=== PATIENT | female | born 1985 | race Two or more races ===

== ENCOUNTER 2021-11-02 21:04 | Emergency (ER) | payer MEDICAID ==
[~2021-11-02] VITALS: Ht 160 cm; Wt 76.4 kg
[2021-11-02 22:34] LABS: CLARITY,URINE CLEAR (Clear); COLOR,URINE YELLOW (Yellow); GLUCOSE, URINE NEGATIVE (Neg); KETONES,URINE NEGATIVE (Neg); LEUKOCYTE ESTERASE ,URINE NEGATIVE (Neg); NITRITES, URINE NEGATIVE (Neg); OCCULT BLOOD,URINE NEGATIVE (Neg); PROTEIN,URINE NEGATIVE (Neg); UROBILINOGEN,URINE 0.2 E.U/dL (0.2-1.0)
[2021-11-02 22:36] LABS: URINE HCG NEGATIVE (NEG)
[2021-11-02 22:42] LABS: UA COLLECTION TYPE NON-SPECIFIED
[2021-11-02] MEDS ORDERED: HYDROcodone/acetaminophen 10/325mg tab PO ONE (22:45)
--- NOTE | 2021-11-03 08:22 | NUR ---
at the bedside. Pt c/o R lower back pain that radiates down to R laderal thigh.
--- NOTE | 2021-11-03 09:40 | NUR ---
Transported to MRI via wheelchair by tech.
[2021-11-03] MEDS ORDERED: CYCL-1 PO (11:39)
[2021-11-03] MEDS ORDERED: ACET-3068 PO (11:39)
[2021-11-03 12:50] VITALS: BP 113/74
== END 2021-11-03 12:59 | disposition home or self-care (01) ==
LOC: ER 21:05
DX: M54.59 Other low back pain (principal); Z20.822 Contact with and (suspected) exposure to COVID-19; R20.0 Anesthesia of skin; Z79.899 Other long term (current) drug therapy
CPT/HCPCS: 72131; 72148; 81003; 81025; 87811; 99285

== ENCOUNTER 2022-11-11 16:51 | Inpatient (IN) | payer MEDICAID ==
[~2022-11-11] VITALS: Ht 160 cm; Wt 76.0 kg
[~2022-11-11 16:51] MED LIST: CYCL-1 PO
[2022-11-11 17:42] LABS: BILIRUBIN,URINE NEGATIVE (Neg); CLARITY,URINE SLIGHTLY CLOUDY (Clear); COLOR,URINE YELLOW (Yellow); GLUCOSE, URINE NEGATIVE (Neg); KETONES,URINE NEGATIVE (Neg); LEUKOCYTE ESTERASE ,URINE NEGATIVE (Neg); NITRITES, URINE NEGATIVE (Neg); OCCULT BLOOD,URINE NEGATIVE (Neg); PH,URINE 7.5 (4.8-8.0); PROTEIN,URINE NEGATIVE (Neg); UROBILINOGEN,URINE 0.2 E.U/dL (0.2-1.0)
[2022-11-11 17:43] LABS: URINE HCG NEGATIVE (NEG)
[2022-11-11 17:54] LABS: UA COLLECTION TYPE CLN CATCH MIDSTREAM
[2022-11-11 17:55] LABS: BACTERIA,URINE FEW /HPF (Neg); MUCUS STRANDS FEW /LPF (Neg); RBC,URINE 0-2 /HPF (0-2); SQUAMOUS EPITHELIAL CELL,UR FEW /LPF (FEW); WBC,URINE 0-4 /HPF (0-4)
[2022-11-11 18:17] LABS: BASOPHILS % (AUTO) 0.2 % (0-1); EOSINOPHILS % (AUTO) 0.4 % (0-6); HEMATOCRIT 36.5 % (35.0-45.0); HEMOGLOBIN 12.2 g/dl (12.0-16.0); LYMPHOCYTES # (AUTO) 2.7 X10'3 (1.1-4.8); LYMPHOCYTES % (AUTO) 23.1 % (21-51); MEAN CORPUSCULAR HEMOGLOBIN 28.6 PG (27.0-31.0); MEAN CORPUSCULAR HGB CONC 33.4 g/dL (33.0-36.5); MEAN CORPUSCULAR VOLUME 85.6 FL (78-98); MEAN PLATELET VOLUME 7.9 FL (7.4-10.4); MONOCYTES # (AUTO) 0.8 X10'3 (0-0.9); MONOCYTES % (AUTO) 6.7 % (2-12); NEUTROPHILS % (AUTO) 69.6 % (42-75); PLATELET COUNT 285 X10'3 (140-440); RED BLOOD COUNT 4.26 X10'6 (4.20-5.60); RED CELL DISTRIBUTION WIDTH 13.8 % (11.5-14.5); WHITE BLOOD COUNT 11.5 X10'3 (4.5-11.0)
[2022-11-11 18:22] LABS: ALANINE AMINOTRANSFERASE 41 U/L (12-78); ALBUMIN 3.8 G/DL (3.4-5.0); ALKALINE PHOSPHATASE 67 IU/L (46-116); ANION GAP 5 (8-16); ASPARTATE AMINO TRANSFERASE 20 U/L (10-37); BILIRUBIN,TOTAL 0.4 MG/DL (0.1-1.0); BLOOD UREA NITROGEN 8 MG/DL (7-18); BUN/CREATININE RATIO 13.3 (10.0-20.0); CALCIUM 9.1 MG/DL (8.5-10.1); CHLORIDE 104 MMOL/L (99-107); GLUCOSE 88 MG/DL (70-104); POTASSIUM 3.4 MMOL/L (3.5-5.1); SODIUM 137 MMOL/L (135-145); TOTAL CARBON DIOXIDE 28.2 MMOL/L (24-32); TOTAL PROTEIN 7.6 G/DL (6.4-8.2); eCRCL 107 ML/MIN; eGFR > 90 ML/MIN
[2022-11-11] MEDS ORDERED: ondansetron 4mg rapidly disintigrating tab PO ONE (22:50)
[2022-11-11] MEDS ORDERED: acetaminophen 325mg tablet PO ONE (22:50)
[2022-11-11] MEDS ORDERED: morphine 4 MG/ML inj SYRINge IV ONE (22:55)
[2022-11-11] MEDS ORDERED: normal saline 1000ml 1,000 ML IV ONE (22:55)
[2022-11-11] MEDS ORDERED: piperacillin/tazo 3.375gm/50ml 50 ML IV ONE (22:55)
[2022-11-12] VITALS (25 sets, daily range): BP systolic 97–158; BP diastolic 54–75; PULSE 67–98; RESP 12–23; TEMP 97.1–97.6; O2SAT 94–100
[2022-11-12] MEDS ORDERED: morphine 2 MG/ML inj. syringe IV PRN ×3 (00:15→15:00)
[2022-11-12] MEDS ORDERED: potassium Cl 40MEQ/1/2NS 520ml 520 ML IV PRN (00:15)
[2022-11-12] MEDS ORDERED: magnesium Cl slow-release 64mg tablet PO PRN (00:15)
[2022-11-12] MEDS ORDERED: magnesium 4gm in 100ml NS 100 ML IV PRN (00:15)
[2022-11-12] MEDS ORDERED: acetaminophen 325mg tablet PO PRN (00:15)
[2022-11-12] MEDS ORDERED: magnesium 2GM in 50ml NS 50 ML IV PRN (00:15)
[2022-11-12] MEDS ORDERED: ondansetron/PF 4mg/2ml inj IV PRN ×2 (00:15→15:00)
[2022-11-12] MEDS ORDERED: potassium Cl 20 mEq SR tablet PO PRN (00:15)
[2022-11-12] MEDS: normal saline 1000ml 1,000 ML IV SCH ×3 (00:21→21:08)
[2022-11-12] MEDS ORDERED: NO HOME MEDS (00:36)
[2022-11-12 03:04] LABS: MAGNESIUM 1.9 MG/DL (1.5-2.4); POTASSIUM 3.3 MMOL/L (3.5-5.1)
--- NOTE | 2022-11-12 07:20 | NUR ---
[facility] PAGED PT REQUESTED PRN PAIN MED
[2022-11-12] MEDS: K and/or MAG REPLACEMENT MC SCH ×2 (07:52→20:00)
[2022-11-12] MEDS: piperacillin/tazo 3.375gm/50ml 50 ML IV SCH ×3 (08:00→23:56)
--- NOTE | 2022-11-12 08:22 | NUR ---
2ND PAGE FOR [facility]
--- NOTE | 2022-11-12 09:25 | NUR ---
3RD ATTEMPT LEFT VM [facility]'S CELL
[2022-11-12] MEDS ORDERED: HYDROmorphone inj. 0.5 MG/0.5 ML DISP.SYRIN IV STA (09:56)
--- NOTE | 2022-11-12 10:28 | NUR ---
REPORT FROM DAY NURSE, PT. UP TO BR AFTER DANGLE, NO DIZZINESS, PAIN 7/10 ABD AND WANTED TO WALK TO BR PRIOR TO PAIN MEDICATIONS. COMPLIANT WITH NPO.
--- NOTE | 2022-11-12 12:16 | NUR ---
PT TURNED OFF HER OWN IV, STATED POTASSIUM BURNING, NOTIFING , TURNED TO 30 ML, IS K RYTER 500 ML ORDERED FASTER RATE.
[2022-11-12] MEDS ORDERED: HYDROmorphone inj. 0.5 MG/0.5 ML DISP.SYRIN IV PRN (13:40)
--- NOTE | 2022-11-12 14:22 | NUR ---
TO OR, VSS, NO PAIN, NO NAUSEA, URINATED PRIOR TO OR WHEN TECH ARRIVED. TOOK HER BELONGINGS AND UPPER DENTURES. IV WNL, SLOWLY TOLERATING IV POTASSIUM PT. HAD STOPPED ORDERED RATE HER SELF OF 130 ML HOUR, STATED IT HURT, NOW AT 60 ML HOUR.
[2022-11-12] MEDS ORDERED: BUPIVAcaine/PF 2.5 mg/ml (0.25%) 30ml vial ONE (14:43)
[2022-11-12] MEDS ORDERED: sevoflurane 250ml liquid IH ONE (14:58)
[2022-11-12] MEDS ORDERED: ringers solution, lacted 1,000 ML IV SCH (15:00)
[2022-11-12] MEDS ORDERED: morphine 4 MG/ML inj SYRINge IV PRN (15:00)
[2022-11-12] MEDS ORDERED: proCHLORperazine 10 MG/2 ml inj IV PRN (15:00)
[2022-11-12] MEDS ORDERED: meperidine/PF 25mg/ml syringe IV PRN ×3 (15:00)
[2022-11-12] MEDS ORDERED: midazolam 1 mg/ML 2ml injection ONE (15:03)
[2022-11-12] MEDS ORDERED: fentaNYL/PF 50MCG/1 ML 2ML syringe ONE (15:03)
[2022-11-12] MEDS ORDERED: rocuronium 10mg/ml inj IV ONE (15:03)
[2022-11-12] MEDS ORDERED: propofol inj 20 ML IV ONE ×2 (15:03→16:06)
[2022-11-12] MEDS ORDERED: BUPIVAcaine/PF 2.5 mg/ml (0.25%) 30ml vial IJ ONE (15:45)
[2022-11-12] MEDS ORDERED: ondansetron/PF 4mg/2ml inj ONE (16:05)
[2022-11-12] MEDS ORDERED: dexamethasone sod phosphate 4mg/ml inj. ONE (16:09)
[2022-11-12] MEDS ORDERED: glycopyrrolate 0.2mg/ml inj ONE (16:09)
[2022-11-12] MEDS ORDERED: neostigmine methylsulfate 1 MG/ML 10ml vial ONE (16:09)
[2022-11-12] MEDS ORDERED: HYDROmorphone inj. 0.5 MG/0.5 ML DISP.SYRIN SQ PRN (16:15)
[2022-11-12] MEDS ORDERED: naloxone 0.4 mg/ml inj IV PRN (16:15)
--- NOTE | 2022-11-12 16:23 | NUR ---
Received from OR via HOSPITAL BED, accompanied by Anesthesiologist and report given by [facility] Anesthesiologist. PATIENT WAKING UP, NO S/S OF PAIN, V/S WNL, SCD ON , PIV 20G LEFT AC, BANDAID LAPS SITES CLOSED CDI TO ABDOMEN. Addendum: 11/12/22 at 1656 by Randolph Meneses RN Amended: Links added.
--- NOTE | 2022-11-12 18:53 | NUR ---
PATIENT HAS MET ALL CRITERIA FOR TRANSFER TO ORTHO FLOOR. VSS. DRESSINGS INTACT. BED LOW, CALL LIGHT PRESENT AND 2 RAILS UP. RN PRESENT TO ACCEPT CARE OF PATIENT AND REPORT HAS BEEN CALLED. ALL QUESTIONS ANSWERED TO ACCEPTING RN. Addendum: 11/12/22 at 1914 by Randolph Meneses RN Amended: Links added.
--- NOTE | 2022-11-12 19:10 | NUR ---
Recieved pt report from recovery room Nurse Genaro pt transferred on bed and made her comfortable.
[2022-11-12] MEDS: HYDROcodone/acetaminophen 5mg/325mg tablet PO PRN (21:39)
[2022-11-12] MEDS: potassium Cl 20 mEq SR tablet PO PRN (23:27)
[2022-11-13 02:22] VITALS: BP 104/57; PULSE 67; RESP 18; O2SAT 96
[2022-11-13] MEDS: HYDROcodone/acetaminophen 5mg/325mg tablet PO PRN ×2 (03:55→09:44)
[2022-11-13] MEDS: potassium Cl 20 mEq SR tablet PO PRN (03:56)
[2022-11-13] MEDS: normal saline 1000ml 1,000 ML IV SCH (06:15)
--- NOTE | 2022-11-13 06:30 | NUR ---
Problems reprioritized. Patient report given, questions answered & plan of care reviewed with TRISTAN HERBERT.
[2022-11-13 06:40] LABS: BASOPHILS % (AUTO) 0.2 % (0-1); EOSINOPHILS % (AUTO) 0.2 % (0-6); HEMATOCRIT 35.4 % (35.0-45.0); HEMOGLOBIN 11.8 g/dl (12.0-16.0); LYMPHOCYTES # (AUTO) 1.8 X10'3 (1.1-4.8); LYMPHOCYTES % (AUTO) 16.2 % (21-51); MEAN CORPUSCULAR HEMOGLOBIN 28.5 PG (27.0-31.0); MEAN CORPUSCULAR HGB CONC 33.3 g/dL (33.0-36.5); MEAN CORPUSCULAR VOLUME 85.7 FL (78-98); MEAN PLATELET VOLUME 7.9 FL (7.4-10.4); MONOCYTES # (AUTO) 0.9 X10'3 (0-0.9); MONOCYTES % (AUTO) 8.1 % (2-12); NEUTROPHILS # (AUTO) 8.3 X10'3 (1.8-7.7); NEUTROPHILS % (AUTO) 75.3 % (42-75); PLATELET COUNT 278 X10'3 (140-440); RED BLOOD COUNT 4.13 X10'6 (4.20-5.60); RED CELL DISTRIBUTION WIDTH 13.7 % (11.5-14.5); WHITE BLOOD COUNT 11.1 X10'3 (4.5-11.0)
[2022-11-13 06:45] LABS: ALANINE AMINOTRANSFERASE 36 U/L (12-78); ALBUMIN 3.1 G/DL (3.4-5.0); ALBUMIN/GLOBULIN RATIO 0.8 (1.1-1.5); ALKALINE PHOSPHATASE 53 IU/L (46-116); ANION GAP 5 (8-16); ASPARTATE AMINO TRANSFERASE 22 U/L (10-37); BILIRUBIN,TOTAL 1.1 MG/DL (0.1-1.0); BLOOD UREA NITROGEN 3 MG/DL (7-18); CALCIUM 8.6 MG/DL (8.5-10.1); CHLORIDE 104 MMOL/L (99-107); CREATININE 0.75 MG/DL (0.40-0.90); GLUCOSE 113 MG/DL (70-104); MAGNESIUM 2.3 MG/DL (1.5-2.4); POTASSIUM 3.9 MMOL/L (3.5-5.1); SODIUM 136 MMOL/L (135-145); TOTAL CARBON DIOXIDE 26.6 MMOL/L (24-32); TOTAL PROTEIN 7.1 G/DL (6.4-8.2); eCRCL 86 ML/MIN; eGFR 87 ML/MIN
[2022-11-13 08:00] VITALS: RESP 14; O2SAT 96
[2022-11-13] MEDS: K and/or MAG REPLACEMENT MC SCH ×2 (08:00→08:13)
[2022-11-13] MEDS: piperacillin/tazo 3.375gm/50ml 50 ML IV SCH (08:09)
[2022-11-13 10:00] VITALS: BP 96/98; PULSE 70; RESP 16; TEMP 98.2; O2SAT 98
[2022-11-13] MEDS ORDERED: ACET-1008 PO (12:07)
== END 2022-11-13 14:00 | disposition home or self-care (01) | DRG 234 ==
LOC: ER 16:53 → ED HOLD 11-12 00:17 → ORTHO 4S 11-12 19:05
PROVIDERS: ADMIT Internal Medicine; ATTEND Family Medicine
PROC: 0DTJ4ZZ Resection of Appendix, Percutaneous Endoscopic Approach (ICD-10-PCS; principal; 2022-11-12 14:58)
DX: K35.80 Unspecified acute appendicitis (principal); E87.6 Hypokalemia
CPT/HCPCS: 36415; 74176; 80053; 81001; 81025; 83735; 84132; 84145; 85025; 99285; A4215; A4314; A4618; A7000; G0378; J1100; J1170; J2175; J2250; J2270; J2405; J2543; J2704; J2710; J3010; J3480; J3490; J7030; J7120

== ENCOUNTER 2023-04-27 02:26 | Emergency (ER) | payer MEDICAID ==
[~2023-04-27] VITALS: Ht 160 cm; Wt 72.0 kg
[~2023-04-27 02:26] MED LIST changes: +ACET-1008 PO; -CYCL-1 PO
[2023-04-27] MEDS ORDERED: pantoprazole 40MG/NS 100ML BAG 100 ML IV ONE (04:20)
[2023-04-27 04:27] LABS: URINE HCG NEGATIVE (NEG)
[2023-04-27 04:27] LABS: BASOPHILS % (AUTO) 0.4 % (0-1); EOSINOPHILS # (AUTO) 0.1 X10'3 (0-0.9); EOSINOPHILS % (AUTO) 0.9 % (0-6); HEMATOCRIT 36.8 % (35.0-45.0); HEMOGLOBIN 12.5 g/dl (12.0-16.0); LYMPHOCYTES # (AUTO) 2.1 X10'3 (1.1-4.8); MEAN CORPUSCULAR HEMOGLOBIN 28.8 PG (27.0-31.0); MEAN CORPUSCULAR HGB CONC 33.9 g/dL (33.0-36.5); MEAN CORPUSCULAR VOLUME 84.9 FL (78-98); MONOCYTES # (AUTO) 0.7 X10'3 (0-0.9); MONOCYTES % (AUTO) 8.9 % (2-12); NEUTROPHILS # (AUTO) 5.3 X10'3 (1.8-7.7); NEUTROPHILS % (AUTO) 64.8 % (42-75); PLATELET COUNT 280 X10'3 (140-440); RED BLOOD COUNT 4.34 X10'6 (4.20-5.60); RED CELL DISTRIBUTION WIDTH 13.9 % (11.5-14.5); WHITE BLOOD COUNT 8.2 X10'3 (4.5-11.0)
[2023-04-27 04:28] LABS: BILIRUBIN,URINE NEGATIVE (Neg); CLARITY,URINE CLEAR (Clear); COLOR,URINE YELLOW (Yellow); GLUCOSE, URINE NEGATIVE (Neg); KETONES,URINE NEGATIVE (Neg); LEUKOCYTE ESTERASE ,URINE NEGATIVE (Neg); NITRITES, URINE NEGATIVE (Neg); OCCULT BLOOD,URINE NEGATIVE (Neg); PROTEIN,URINE NEGATIVE (Neg); UROBILINOGEN,URINE 0.2 E.U/dL (0.2-1.0)
[2023-04-27] MEDS: pantoprazole 40 MG vial IV ONE (04:33)
[2023-04-27] MEDS: normal saline 1000ML IV soln IVB ONE (04:33)
[2023-04-27] MEDS: ondansetron/PF 4mg/2ml inj IV ONE (04:33)
[2023-04-27 04:37] LABS: ALANINE AMINOTRANSFERASE 36 U/L (12-78); ALBUMIN 3.5 G/DL (3.4-5.0); ALKALINE PHOSPHATASE 62 IU/L (46-116); ANION GAP 11 (8-16); ASPARTATE AMINO TRANSFERASE 30 U/L (10-37); BILIRUBIN,TOTAL 0.4 MG/DL (0.1-1.0); BLOOD UREA NITROGEN 13 MG/DL (7-18); BUN/CREATININE RATIO 18.1 (10.0-20.0); CALCIUM 9.1 MG/DL (8.5-10.1); CHLORIDE 106 MMOL/L (99-107); CREATININE 0.72 MG/DL (0.40-0.90); GLUCOSE 108 MG/DL (70-104); LIPASE 38 U/L (16-77); POTASSIUM 3.7 MMOL/L (3.5-5.1); SODIUM 141 MMOL/L (135-145); TOTAL CARBON DIOXIDE 23.8 MMOL/L (24-32); TOTAL PROTEIN 7.1 G/DL (6.4-8.2); eCRCL 89 ML/MIN; eGFR > 90 ML/MIN
[2023-04-27 04:40] LABS: UA COLLECTION TYPE CLN CATCH MIDSTREAM
[2023-04-27] MEDS ORDERED: PANT-47 PO (05:32)
[2023-04-27] MEDS ORDERED: ONDA8TAB13 PO (05:32)
[2023-04-27 05:41] VITALS: BP 112/71; PULSE 61; RESP 14; TEMP 98.6; O2SAT 99
== END 2023-04-27 05:44 | disposition home or self-care (01) ==
LOC: ER 02:27
DX: R10.13 Epigastric pain (principal); E11.9 Type 2 diabetes mellitus without complications; Z79.899 Other long term (current) drug therapy; Z98.890 Other specified postprocedural states
CPT/HCPCS: 36415; 80053; 81003; 81025; 83690; 85025; 96361; 96374; 96375; 99284; C9113; J2405; J7030

== ENCOUNTER 2023-06-03 20:32 | Inpatient (IN) | payer MEDICAID ==
[~2023-06-03] VITALS: Ht 162.6 cm; Wt 77.2 kg
[~2023-06-03 20:32] MED LIST changes: +ONDA8TAB13 PO; +PANT-47 PO
[2023-06-03 22:49] LABS: BASOPHILS % (AUTO) 0.4 % (0-1); EOSINOPHILS # (AUTO) 0.1 X10'3 (0-0.9); EOSINOPHILS % (AUTO) 0.9 % (0-6); HEMOGLOBIN 13.5 g/dl (12.0-16.0); LYMPHOCYTES % (AUTO) 33.4 % (21-51); MEAN CORPUSCULAR HEMOGLOBIN 28.8 PG (27.0-31.0); MEAN CORPUSCULAR HGB CONC 33.7 g/dL (33.0-36.5); MEAN CORPUSCULAR VOLUME 85.5 FL (78-98); MONOCYTES # (AUTO) 0.6 X10'3 (0-0.9); MONOCYTES % (AUTO) 6.7 % (2-12); NEUTROPHILS # (AUTO) 5.2 X10'3 (1.8-7.7); NEUTROPHILS % (AUTO) 58.6 % (42-75); PLATELET COUNT 296 X10'3 (140-440); RED BLOOD COUNT 4.67 X10'6 (4.20-5.60); RED CELL DISTRIBUTION WIDTH 13.5 % (11.5-14.5); WHITE BLOOD COUNT 8.9 X10'3 (4.5-11.0)
[2023-06-03 22:57] LABS: ALANINE AMINOTRANSFERASE 54 U/L (12-78); ALBUMIN 3.8 G/DL (3.4-5.0); ALBUMIN/GLOBULIN RATIO 0.9 (1.1-1.5); ALKALINE PHOSPHATASE 70 IU/L (46-116); ASPARTATE AMINO TRANSFERASE 37 U/L (10-37); BLOOD UREA NITROGEN 13 MG/DL (7-18); BUN/CREATININE RATIO 18.3 (10.0-20.0); CALCIUM 9.1 MG/DL (8.5-10.1); CREATININE 0.71 MG/DL (0.40-0.90); GLUCOSE 106 MG/DL (70-104); LIPASE 52 U/L (16-77); TOTAL PROTEIN 7.9 G/DL (6.4-8.2); eCRCL 91 ML/MIN; eGFR > 90 ML/MIN
[2023-06-03 22:58] LABS: ANION GAP 11 (8-16); BILIRUBIN,TOTAL 0.3 MG/DL (0.1-1.0); CHLORIDE 104 MMOL/L (99-107); POTASSIUM 3.8 MMOL/L (3.5-5.1); SODIUM 141 MMOL/L (135-145); TOTAL CARBON DIOXIDE 26.3 MMOL/L (24-32)
[2023-06-04] VITALS (23 sets, daily range): BP systolic 106–120; BP diastolic 59–70; PULSE 60–89; RESP 12–18; TEMP 97.2–97.7; O2SAT 98–100
[2023-06-04] MEDS: LIDOcaine 2% Viscous 15ml cup MM ONE (02:33)
[2023-06-04] MEDS: mag hydrox/Alum hydrox/simeth 30ml oral suspension PO ONE (02:33)
[2023-06-04] MEDS: normal saline 1000ML IV soln IVB ONE (03:20)
[2023-06-04] MEDS: morphine 4 MG/ML inj SYRINge IV ONE (03:34)
[2023-06-04] MEDS: CefTRIAXone/D5W-Rocephin 1gm 50 ML IV ONE (03:34)
[2023-06-04] MEDS ORDERED: ketorolac trometh. 30mg/ml inj. IV ONE (04:35)
[2023-06-04] MEDS: diphenhydrAMINE 50 mg/ml inj IV ONE (04:43)
[2023-06-04] MEDS: proCHLORperazine 10 MG/2 ml inj IV ONE (04:43)
[2023-06-04] MEDS: metroNIDAZOLE-Flagyl 500mg/NS 100 ML IV ONE (04:43)
[2023-06-04] MEDS: normal saline 1000ml 1,000 ML IV SCH (04:45)
[2023-06-04] MEDS ORDERED: mag hydrox/Alum hydrox/simeth 30ml oral suspension PO PRN (04:45)
[2023-06-04] MEDS ORDERED: potassium Cl 40MEQ/1/2NS 520ml 520 ML IV PRN (04:45)
[2023-06-04] MEDS ORDERED: morphine 2 MG/ML inj. syringe IV PRN ×3 (04:45→17:00)
[2023-06-04] MEDS ORDERED: magnesium 2GM in 50ml NS 50 ML IV PRN (04:45)
[2023-06-04] MEDS ORDERED: magnesium Cl slow-release 64mg tablet PO PRN (04:45)
[2023-06-04] MEDS ORDERED: potassium Cl 20 mEq SR tablet PO PRN (04:45)
[2023-06-04] MEDS ORDERED: magnesium 4gm in 100ml NS 100 ML IV PRN (04:45)
[2023-06-04] MEDS ORDERED: acetaminophen 325mg tablet PO PRN (04:45)
[2023-06-04] MEDS: ketorolac tromethamine 15mg/ml inj. IV ONE (04:54)
[2023-06-04 06:59] LABS: BILIRUBIN,URINE NEGATIVE (Neg); CLARITY,URINE CLEAR (Clear); COLOR,URINE YELLOW (Yellow); GLUCOSE, URINE NEGATIVE (Neg); KETONES,URINE NEGATIVE (Neg); LEUKOCYTE ESTERASE ,URINE NEGATIVE (Neg); NITRITES, URINE NEGATIVE (Neg); OCCULT BLOOD,URINE NEGATIVE (Neg); PH,URINE 6.5 (4.8-8.0); PROTEIN,URINE NEGATIVE (Neg); UROBILINOGEN,URINE 0.2 E.U/dL (0.2-1.0)
[2023-06-04 07:00] LABS: URINE HCG NEGATIVE (NEG)
[2023-06-04 07:07] LABS: UA COLLECTION TYPE CLN CATCH MIDSTREAM
[2023-06-04] MEDS: K and/or MAG REPLACEMENT MC SCH (08:00)
[2023-06-04] MEDS: docusate sod 100mg capsule PO SCH (08:00)
[2023-06-04] MEDS: heparin, porcine 5000 units/ml vial SQ SCH (08:00)
[2023-06-04] MEDS: pantoprazole 40 MG vial IV SCH (08:21)
[2023-06-04] MEDS ORDERED: iohexol 300mg/ml 100ml inj. ONE (14:04)
[2023-06-04] MEDS: metroNIDAZOLE-Flagyl 500mg/NS 100 ML IV SCH (15:13)
[2023-06-04] MEDS ORDERED: metroNIDAZOLE-Flagyl 500mg/NS 100 ML IV SCH (17:00)
[2023-06-04] MEDS ORDERED: morphine 4 MG/ML inj SYRINge IV PRN (17:00)
[2023-06-04] MEDS ORDERED: meperidine/PF 25mg/ml syringe IV PRN ×2 (17:00)
[2023-06-04] MEDS ORDERED: ondansetron/PF 4mg/2ml inj IV PRN (17:00)
[2023-06-04] MEDS ORDERED: proCHLORperazine 10 MG/2 ml inj IV PRN (17:00)
[2023-06-04] MEDS ORDERED: BUPIVAcaine 2.5mg/ml inj 50ml vial (contains preservative) ONE (17:03)
[2023-06-04] MEDS ORDERED: sevoflurane 250ml liquid IH ONE (17:09)
[2023-06-04] MEDS ORDERED: midazolam 1 mg/ML 2ml injection ONE (17:19)
[2023-06-04] MEDS ORDERED: fentaNYL/PF 50MCG/1 ML 2ML syringe ONE (17:19)
[2023-06-04] MEDS ORDERED: propofol inj 20 ML IV ONE (17:28)
[2023-06-04] MEDS ORDERED: rocuronium 10mg/ml inj IV ONE (17:38)
[2023-06-04] MEDS ORDERED: dexamethasone sod phosphate 4mg/ml inj. ONE (17:38)
[2023-06-04] MEDS ORDERED: ceFOXitin 1000 MG inj ONE ×2 (17:38)
[2023-06-04] MEDS: BUPIVAcaine/PF 2.5 mg/ml (0.25%) 30ml vial IJ ONE (18:01)
[2023-06-04] MEDS ORDERED: ondansetron/PF 4mg/2ml inj ONE (18:17)
[2023-06-04] MEDS ORDERED: neostigmine methylsulfate 1 MG/ML 10ml vial ONE (18:20)
[2023-06-04] MEDS ORDERED: glycopyrrolate 0.2mg/ml inj ONE (18:21)
[2023-06-04] MEDS ORDERED: naloxone 0.4 mg/ml inj IV PRN (18:35)
[2023-06-04] MEDS: ringers solution, lacted 1,000 ML IV SCH (18:49)
[2023-06-04] MEDS: meperidine/PF 25mg/ml syringe IV PRN (19:09)
[2023-06-04] MEDS: HYDROcodone/acetaminophen 5mg/325mg tablet PO PRN (20:09)
[2023-06-04] MEDS: diatr meglu/diatrizoate 30ml oral sol.-(3 dose) bottle PO SCH (20:09)
[2023-06-04] MEDS: CefTRIAXone/D5W-Rocephin 1gm 50 ML IV SCH (23:31)
[2023-06-05] MEDS: ceFOXitin inj 1,000 MG in normal saline 100ml IV soln 100 ML IV SCH (00:22)
[2023-06-05 06:53] VITALS: BP 108/88; PULSE 62; RESP 17; TEMP 97.9; O2SAT 96
[2023-06-05 08:27] LABS: BASOPHILS % (AUTO) 0.1 % (0-1); EOSINOPHILS % (AUTO) 0 % (0-6); HEMOGLOBIN 12.6 g/dl (12.0-16.0); LYMPHOCYTES # (AUTO) 1.3 X10'3 (1.1-4.8); LYMPHOCYTES % (AUTO) 12.8 % (21-51); MEAN CORPUSCULAR HEMOGLOBIN 28.4 PG (27.0-31.0); MEAN CORPUSCULAR HGB CONC 33.1 g/dL (33.0-36.5); MEAN CORPUSCULAR VOLUME 85.7 FL (78-98); MEAN PLATELET VOLUME 8.5 FL (7.4-10.4); MONOCYTES # (AUTO) 0.5 X10'3 (0-0.9); MONOCYTES % (AUTO) 5.3 % (2-12); NEUTROPHILS # (AUTO) 8.3 X10'3 (1.8-7.7); NEUTROPHILS % (AUTO) 81.8 % (42-75); PLATELET COUNT 286 X10'3 (140-440); RED BLOOD COUNT 4.43 X10'6 (4.20-5.60); WHITE BLOOD COUNT 10.1 X10'3 (4.5-11.0)
[2023-06-05 08:30] VITALS: RESP 18; O2SAT 98
[2023-06-05 08:56] LABS: ALANINE AMINOTRANSFERASE 133 U/L (12-78); ALBUMIN 3.3 G/DL (3.4-5.0); ALBUMIN/GLOBULIN RATIO 0.8 (1.1-1.5); ALKALINE PHOSPHATASE 73 IU/L (46-116); ANION GAP 12 (8-16); ASPARTATE AMINO TRANSFERASE 75 U/L (10-37); BILIRUBIN,TOTAL 0.7 MG/DL (0.1-1.0); BLOOD UREA NITROGEN 5 MG/DL (7-18); BUN/CREATININE RATIO 8.8 (10.0-20.0); CALCIUM 8.3 MG/DL (8.5-10.1); CHLORIDE 103 MMOL/L (99-107); CREATININE 0.57 MG/DL (0.40-0.90); GLUCOSE 107 MG/DL (70-104); MAGNESIUM 1.9 MG/DL (1.5-2.4); PHOSPHORUS 3.7 MG/DL (2.3-4.5); SODIUM 138 MMOL/L (135-145); TOTAL CARBON DIOXIDE 22.9 MMOL/L (24-32); TOTAL PROTEIN 7.2 G/DL (6.4-8.2); eCRCL 118 ML/MIN; eGFR > 90 ML/MIN
[2023-06-05 09:09] LABS: POTASSIUM 3.9 MMOL/L (3.5-5.1)
[2023-06-05 10:00] VITALS: BP 117/61; PULSE 58; RESP 15; TEMP 98.9; O2SAT 98
[2023-06-05] MEDS ORDERED: HYDR-3964 PO (10:18)
[2023-06-05] MEDS: ondansetron/PF 4mg/2ml inj IV PRN (11:28)
[2023-06-05] MEDS: HYDROcodone/acetaminophen 10/325mg tab PO PRN (12:54)
[2023-06-05] MEDS: metoclopramide 5 mg/ml inj IV SCH (17:39)
[2023-06-05 18:00] VITALS: BP 114/68; PULSE 80; RESP 16; TEMP 97.9; O2SAT 99
[2023-06-05 20:00] VITALS: RESP 16; O2SAT 100
[2023-06-05 22:00] VITALS: BP 116/63; PULSE 58; RESP 16; TEMP 97.9; O2SAT 100
[2023-06-06 06:00] VITALS: BP 105/73; PULSE 70; RESP 14; TEMP 98.1; O2SAT 98
[2023-06-06 07:01] LABS: BASOPHILS % (AUTO) 0.6 % (0-1); EOSINOPHILS % (AUTO) 0.7 % (0-6); HEMATOCRIT 31.8 % (35.0-45.0); HEMOGLOBIN 10.9 g/dl (12.0-16.0); LYMPHOCYTES # (AUTO) 2.3 X10'3 (1.1-4.8); LYMPHOCYTES % (AUTO) 38.4 % (21-51); MEAN CORPUSCULAR HEMOGLOBIN 29.1 PG (27.0-31.0); MEAN CORPUSCULAR HGB CONC 34.2 g/dL (33.0-36.5); MEAN CORPUSCULAR VOLUME 85.2 FL (78-98); MEAN PLATELET VOLUME 7.8 FL (7.4-10.4); MONOCYTES # (AUTO) 0.6 X10'3 (0-0.9); MONOCYTES % (AUTO) 9.6 % (2-12); NEUTROPHILS % (AUTO) 50.7 % (42-75); PLATELET COUNT 229 X10'3 (140-440); RED BLOOD COUNT 3.73 X10'6 (4.20-5.60); RED CELL DISTRIBUTION WIDTH 13.7 % (11.5-14.5); WHITE BLOOD COUNT 5.9 X10'3 (4.5-11.0)
[2023-06-06 07:26] LABS: ALANINE AMINOTRANSFERASE 86 U/L (12-78); ALBUMIN 2.6 G/DL (3.4-5.0); ALBUMIN/GLOBULIN RATIO 0.8 (1.1-1.5); ALKALINE PHOSPHATASE 52 IU/L (46-116); ANION GAP 5 (8-16); ASPARTATE AMINO TRANSFERASE 34 U/L (10-37); BILIRUBIN,TOTAL 0.4 MG/DL (0.1-1.0); BLOOD UREA NITROGEN 5 MG/DL (7-18); BUN/CREATININE RATIO 6.9 (10.0-20.0); CHLORIDE 108 MMOL/L (99-107); CREATININE 0.72 MG/DL (0.40-0.90); GLUCOSE 90 MG/DL (70-104); MAGNESIUM 1.8 MG/DL (1.5-2.4); PHOSPHORUS 3.3 MG/DL (2.3-4.5); POTASSIUM 3.3 MMOL/L (3.5-5.1); SODIUM 140 MMOL/L (135-145); TOTAL PROTEIN 5.8 G/DL (6.4-8.2); eCRCL 93 ML/MIN; eGFR > 90 ML/MIN
[2023-06-06 08:30] VITALS: RESP 16; O2SAT 98
[2023-06-06 10:00] VITALS: BP 109/64; PULSE 67; RESP 16; TEMP 97.1; O2SAT 98
[2023-06-06] MEDS: potassium Cl 20 mEq SR tablet PO PRN (10:29)
[2023-06-06] MEDS: magnesium hydroxide 30ml (MOM) UD suspension PO PRN (10:30)
== END 2023-06-06 12:50 | disposition home or self-care (01) | DRG 263 ==
LOC: ER 20:33 → ED HOLD 06-04 04:43 → ORTHO 4S 06-04 08:55
PROVIDERS: ADMIT Surgery Surgical Critical Care; ATTEND Internal Medicine
PROC: 8E0W4CZ Robotic Assisted Procedure of Trunk Region, Percutaneous Endoscopic Approach (ICD-10-PCS; 2023-06-04)
PROC: BW211ZZ Computerized Tomography (CT Scan) of Abdomen and Pelvis using Low Osmolar Contrast (ICD-10-PCS; 2023-06-04)
PROC: 0FT44ZZ Resection of Gallbladder, Percutaneous Endoscopic Approach (ICD-10-PCS; principal; 2023-06-04 17:09)
DX: K80.12 Calculus of gallbladder with acute and chronic cholecystitis without obstruction (principal); E87.20 Acidosis, unspecified; E11.9 Type 2 diabetes mellitus without complications; K82.8 Other specified diseases of gallbladder; Z90.49 Acquired absence of other specified parts of digestive tract
CPT/HCPCS: 36415; 74177; 76700; 80053; 81003; 81025; 83690; 83735; 84100; 84484; 85025; 87081; 93005; 96365; 99285; A4215; A4618; A7000; C9113; G0378; J0694; J0696; J0780; J1100; J1200; J1644; J2175; J2250; J2405; J2704; J2710; J2765; J3010; J3490; J7030; J7120; Q9963; Q9967

== ENCOUNTER 2023-10-20 17:51 | Emergency (ER) | payer MEDICAID ==
[~2023-10-20] VITALS: Ht 160 cm; Wt 81.4 kg
[~2023-10-20 17:51] MED LIST changes: +HYDR-3964 PO; -ONDA8TAB13 PO; -PANT-47 PO
[2023-10-20 18:28] LABS: BASOPHILS % (AUTO) 0.4 % (0-1); EOSINOPHILS # (AUTO) 0.1 X10'3 (0-0.9); HEMATOCRIT 39.3 % (35.0-45.0); LYMPHOCYTES # (AUTO) 3.2 X10'3 (1.1-4.8); LYMPHOCYTES % (AUTO) 46.4 % (21-51); MEAN CORPUSCULAR HEMOGLOBIN 28.6 PG (27.0-31.0); MEAN CORPUSCULAR VOLUME 86.6 FL (78-98); MEAN PLATELET VOLUME 7.4 FL (7.4-10.4); MONOCYTES # (AUTO) 0.6 X10'3 (0-0.9); MONOCYTES % (AUTO) 8.4 % (2-12); NEUTROPHILS # (AUTO) 3.1 X10'3 (1.8-7.7); NEUTROPHILS % (AUTO) 43.8 % (42-75); PLATELET COUNT 285 X10'3 (140-440); RED BLOOD COUNT 4.54 X10'6 (4.20-5.60); RED CELL DISTRIBUTION WIDTH 13.4 % (11.5-14.5)
[2023-10-20 18:44] LABS: ALANINE AMINOTRANSFERASE 58 U/L (12-78); ALBUMIN 3.8 G/DL (3.4-5.0); ALBUMIN/GLOBULIN RATIO 1.1 (1.1-1.5); ALKALINE PHOSPHATASE 74 IU/L (46-116); ANION GAP 7 (8-16); ASPARTATE AMINO TRANSFERASE 33 U/L (10-37); BILIRUBIN,TOTAL 0.4 MG/DL (0.1-1.0); BLOOD UREA NITROGEN 9 MG/DL (7-18); BUN/CREATININE RATIO 12.9 (10.0-20.0); CALCIUM 9.2 MG/DL (8.5-10.1); CHLORIDE 104 MMOL/L (99-107); GLUCOSE 94 MG/DL (70-104); POTASSIUM 3.6 MMOL/L (3.5-5.1); SODIUM 138 MMOL/L (135-145); TOTAL CARBON DIOXIDE 27.1 MMOL/L (24-32); TOTAL PROTEIN 7.4 G/DL (6.4-8.2); eCRCL 91 ML/MIN; eGFR > 90 ML/MIN
[2023-10-20] MEDS ORDERED: HYDR25SU32 RC (23:20)
[2023-10-20 23:28] VITALS: BP 103/65; PULSE 61; RESP 14; TEMP 98.4; O2SAT 98
== END 2023-10-20 23:30 | disposition home or self-care (01) ==
LOC: ER 17:51
DX: K92.2 Gastrointestinal hemorrhage, unspecified (principal); E11.9 Type 2 diabetes mellitus without complications; Z79.1 Long term (current) use of non-steroidal anti-inflammatories (NSAID); Z79.899 Other long term (current) drug therapy
CPT/HCPCS: 36415; 80053; 85025; 99283

== ENCOUNTER 2024-03-13 10:30 | Emergency (ER) | payer MEDICAID ==
[~2024-03-13] VITALS: Ht 160 cm; Wt 79.1 kg
[~2024-03-13 10:30] MED LIST changes: +HYDR25SU32 RC
[2024-03-13 11:45] LABS: BASOPHILS % (AUTO) 0.7 % (0-1); EOSINOPHILS # (AUTO) 0.1 X10'3 (0-0.9); EOSINOPHILS % (AUTO) 1.9 % (0-6); HEMOGLOBIN 12.4 g/dl (12.0-16.0); LYMPHOCYTES # (AUTO) 1.4 X10'3 (1.1-4.8); LYMPHOCYTES % (AUTO) 27.2 % (21-51); MEAN CORPUSCULAR HEMOGLOBIN 28.7 PG (27.0-31.0); MEAN CORPUSCULAR HGB CONC 33.5 g/dL (33.0-36.5); MEAN CORPUSCULAR VOLUME 85.6 FL (78-98); MEAN PLATELET VOLUME 7.6 FL (7.4-10.4); MONOCYTES # (AUTO) 0.8 X10'3 (0-0.9); MONOCYTES % (AUTO) 15.1 % (2-12); NEUTROPHILS # (AUTO) 2.8 X10'3 (1.8-7.7); NEUTROPHILS % (AUTO) 55.1 % (42-75); PLATELET COUNT 390 X10'3 (140-440); RED BLOOD COUNT 4.33 X10'6 (4.20-5.60); RED CELL DISTRIBUTION WIDTH 13.7 % (11.5-14.5); WHITE BLOOD COUNT 5.1 X10'3 (4.5-11.0)
[2024-03-13 12:06] VITALS: BP 96/68; PULSE 61; RESP 15; TEMP 97.9; O2SAT 99
== END 2024-03-13 12:09 | disposition home or self-care (01) ==
LOC: ER 10:31
DX: R59.1 Generalized enlarged lymph nodes (principal); E11.9 Type 2 diabetes mellitus without complications; Z91.048 Other nonmedicinal substance allergy status; Z79.899 Other long term (current) drug therapy; Z72.89 Other problems related to lifestyle
CPT/HCPCS: 85025; 99283